=== PATIENT | female | born 1955 | race Caucasian/White ===

== ENCOUNTER 2021-10-14 08:57 | Day surgery (SDC) | payer OTHER ==
[~2021-10-14] VITALS: Ht 157.5 cm; Wt 56.9 kg
[2021-10-14] MEDS ORDERED: ZESTRIL40 M1 (09:35)
[2021-10-14] MEDS ORDERED: PRAV20 (09:36)
[2021-10-14] MEDS ORDERED: Toprol Xl25 MG (09:36)
[2021-10-14] MEDS ORDERED: ALEN70 (09:36)
== END 2021-10-14 12:19 | disposition home or self-care (01) ==
LOC: ORSCSDS 08:57
PROVIDERS: Internal Medicine Gastroenterology
PROC: 0DBH8ZX Excision of Cecum, Via Natural or Artificial Opening Endoscopic, Diagnostic (ICD-10-PCS; principal; 2021-10-14 10:15)
PROC: 0DBL8ZX Excision of Transverse Colon, Via Natural or Artificial Opening Endoscopic, Diagnostic (ICD-10-PCS; principal; 2021-10-14 10:15)
PROC: 0DBM8ZX Excision of Descending Colon, Via Natural or Artificial Opening Endoscopic, Diagnostic (ICD-10-PCS; principal; 2021-10-14 10:15)
PROC: 0DBK8ZX Excision of Ascending Colon, Via Natural or Artificial Opening Endoscopic, Diagnostic (ICD-10-PCS; principal; 2021-10-14 10:15)
PROC: 0DBN8ZX Excision of Sigmoid Colon, Via Natural or Artificial Opening Endoscopic, Diagnostic (ICD-10-PCS; principal; 2021-10-14 10:15)
DX: Z12.11 Encounter for screening for malignant neoplasm of colon (principal); Z86.010 Personal history of colon polyps; D12.0 Benign neoplasm of cecum; D12.2 Benign neoplasm of ascending colon; D12.3 Benign neoplasm of transverse colon; I10 Essential (primary) hypertension; F17.210 Nicotine dependence, cigarettes, uncomplicated
CPT/HCPCS: 88305; J2405; J2704; J7120

== ENCOUNTER 2023-07-16 08:16 | Day surgery (SDC) | payer OTHER ==
[~2023-07-16] VITALS: Ht 157.5 cm; Wt 54.5 kg
[~2023-07-16 08:16] MED LIST: ALEN70; PRAV20; Toprol Xl25 MG; ZESTRIL40 M1
[2023-07-16 10:14] VITALS: BP 97/77
--- NOTE | 2023-07-16 10:15 | NUR ---
07/16/23 1015 Zulay Brown IV DC'D, CATH INTACT. PT TOLERATED WELL. GAUZE/COBAN IN PLACE
== END 2023-07-16 10:18 | disposition home or self-care (01) ==
LOC: ORSCSDS 08:16
PROVIDERS: Internal Medicine Gastroenterology
PROC: 0DBM8ZX Excision of Descending Colon, Via Natural or Artificial Opening Endoscopic, Diagnostic (ICD-10-PCS; principal; 2023-07-16 09:30)
PROC: 0DBP8ZX Excision of Rectum, Via Natural or Artificial Opening Endoscopic, Diagnostic (ICD-10-PCS; principal; 2023-07-16 09:30)
PROC: 0DBN8ZX Excision of Sigmoid Colon, Via Natural or Artificial Opening Endoscopic, Diagnostic (ICD-10-PCS; principal; 2023-07-16 09:30)
PROC: 0DBL8ZX Excision of Transverse Colon, Via Natural or Artificial Opening Endoscopic, Diagnostic (ICD-10-PCS; principal; 2023-07-16 09:30)
PROC: 0DBK8ZX Excision of Ascending Colon, Via Natural or Artificial Opening Endoscopic, Diagnostic (ICD-10-PCS; principal; 2023-07-16 09:30)
DX: Z86.010 Personal history of colon polyps (principal); D12.2 Benign neoplasm of ascending colon; D12.3 Benign neoplasm of transverse colon; K63.5 Polyp of colon; K62.1 Rectal polyp; I10 Essential (primary) hypertension; E78.2 Mixed hyperlipidemia; Z79.899 Other long term (current) drug therapy; F17.210 Nicotine dependence, cigarettes, uncomplicated
CPT/HCPCS: 88305; J2704; J7120

== ENCOUNTER 2024-07-26 10:00 | Day surgery (SDC) | payer OTHER ==
[~2024-07-26] VITALS: Ht 157.5 cm; Wt 50.8 kg
[~2024-07-26 10:00] MED LIST changes: +Lactated Ringer's 1,000 ML IV ONE; +propofoL 50 ML IV ONE
[2024-07-26] MEDS ORDERED: AMLODIPINE BESY10 MG (11:23)
[2024-07-26] MEDS ORDERED: Lactated Ringer's 1,000 ML IV ONE (11:56)
[2024-07-26 13:02] VITALS: BP 118/981
== END 2024-07-26 13:12 | disposition home or self-care (01) ==
LOC: ORSCSDS 10:00
PROVIDERS: Specialist
PROC: 0DBP8ZX Excision of Rectum, Via Natural or Artificial Opening Endoscopic, Diagnostic (ICD-10-PCS; principal; 2024-07-26 12:15)
DX: K63.5 Polyp of colon (principal); K62.1 Rectal polyp; K64.8 Other hemorrhoids; I10 Essential (primary) hypertension; E78.5 Hyperlipidemia, unspecified; Z79.899 Other long term (current) drug therapy; F17.210 Nicotine dependence, cigarettes, uncomplicated
CPT/HCPCS: 88305; J2704; J7120

== ENCOUNTER 2025-02-18 21:09 | Inpatient (IN) | payer OTHER ==
[~2025-02-18] VITALS: Ht 160 cm; Wt 63.5 kg
[~2025-02-18 21:09] MED LIST changes: +AMLODIPINE BESY10 MG; -Lactated Ringer's 1,000 ML IV ONE; -propofoL 50 ML IV ONE
[2025-02-18] MEDS ORDERED: Folic Acid 1 MG TAB PO ONE (21:20)
[2025-02-18] MEDS ORDERED: NS 1,000 ML IV SCH (21:20)
[2025-02-18 21:23] LABS: BASOPHILS ABSOLUTE AUTO 0.00 K/mm3 (0.00-0.23); BASOPHILS PERCENT AUTO 0 % (0-2); EOSINOPHILS ABSOLUTE AUTO 0.02 K/mm3 (0.00-0.68); EOSINOPHILS PERCENT AUTO 1 % (0-6); IMMATURE GRAN ABSOLUTE AUTO 0.01 K/mm3 (0.00-0.10); IMMATURE GRAN PERCENT AUTO 0 % (0-1); LYMPHOCYTES ABSOLUTE AUTO 0.47 K/mm3 (0.84-5.20); LYMPHOCYTES PERCENT AUTO 16 % (21-46); MONOCYTES ABSOLUTE AUTO 0.11 K/mm3 (0.16-1.47); MONOCYTES PERCENT AUTO 4 % (4-13); Mean Corpuscular HGB Conc 37.3 g/dL (31.5-36.5); Mean Corpuscular Volume 95 fL (80-100); NEUTROPHILS ABSOLUTE AUTO 2.32 K/mm3 (1.96-9.15); NEUTROPHILS PERCENT AUTO 79 % (41-73); NRBC ABSOLUTE 0.00 K/mm3 (0.00-0.02); NRBC Auto 0.0 /100 WBC (0.0-0.2); Platelet Count 86 K/mm3 (150-400); RDW Coefficient Variation 17.1 % (11.7-14.2); RDW Standard Deviation 58.3 fL (35.1-46.3)
[2025-02-18 21:30] LABS: Hematocrit 14.2 % (33.0-51.0)
[2025-02-18 21:31] LABS: Hemoglobin 5.3 g/dL (11.5-16.0)
[2025-02-18] MEDS ORDERED: CefTRIAXone Sodium 1,000 MG in NS 100 ML IV ONE (21:35)
[2025-02-18] MEDS ORDERED: Pantoprazole Sodium 40 MG Injection IV ONE (21:35)
[2025-02-18 21:43] LABS: Ethanol (Alcohol), Blood, Med 262.0 mg/dL
[2025-02-18 21:46] LABS: Alanine Aminotransfer (ALT/SGP 29.0 U/L (12-78); Albumin, Blood 2.7 g/dL (3.4-5.0); Albumin/Globulin Ratio 0.8 (0.8-1.8); Anion Gap 18.0 mmol/L (3-11); Aspartate Aminotrans (AST/SGOT 52.0 U/L (12-37); Bilirubin, Total 0.9 mg/dL (0.1-1.0); Blood Urea Nitrogen 12.0 mg/dL (8-24); CO2, Blood 22.0 mmol/L (21-32); Calcium, Blood 5.9 mg/dL (8.5-10.1); Chloride, Blood 83.0 mmol/L (98-108); Creatinine, Blood 1.02 mg/dL (0.40-1.00); Globulin, Blood 3.2 g/dL (2.2-4.0); Glucose, Blood 97.0 mg/dL (70-99); Magnesium, Blood 0.9 mg/dL (1.6-2.4); Phosphorus, Blood 2.9 mg/dL (2.5-4.9); Potassium, Blood 2.2 mmol/L (3.5-5.5); Sodium, Blood 121.0 mmol/L (136-145); Total Protein, Blood 5.9 g/dL (6.4-8.2)
[2025-02-18] MEDS ORDERED: Magnesium Sulf 2 GM/Water 50ML 50 ML IV ONE (21:50)
[2025-02-18 22:34] LABS: Prothrombin Time Results 11.6 Sec (9.7-11.5)
[2025-02-19] VITALS (9 sets, daily range): BP systolic 111–144; BP diastolic 72–99
[2025-02-19] MEDS ORDERED: Ondansetron HCl 2 MG / ML 2ML Vial IV PRN (00:40)
[2025-02-19] MEDS ORDERED: NS 1,000 ML IV SCH (01:00)
[2025-02-19] MEDS ORDERED: NS 1,000 ML BAG IR ONE (05:15)
[2025-02-19] MEDS ORDERED: NS 500 ML IV ONE (05:30)
[2025-02-19] MEDS ORDERED: Pantoprazole Sodium 40 MG Injection IV SCH (06:00)
--- NOTE | 2025-02-19 07:38 | NUR ---
END OF SHIFT REPORT PT ADMITTED FROM ER AND PHOTOGRAPH OF REDDENED AREA OF BUTTOCKS TAKEN FOR BLANCHABLE REDNESS. PT ENDORESE DIARRHE AT HOME. STATES SHE HAS BEEN ON ORAL CHEMO FOR 3 WEEKS FOR STAGE FOUR LUNG CANCER. TRANSFUSIONS OF K AND FIRST BLAG OF BLOOD COMPLETED. THIAMINE AND FOLIC ACID COMPLETED AND SECOND BAG OF K TRANSFUSING. SECOND BAG OF PACKED RBC STARTED. PT TACHYCARDIC IN 120'S TO 130'S. PT CIWA SCORE 2. PER ER REPORT, PT VERY WEAK. BED ALARMS FOR SAFETY. FAMILY AT BEDSIDE AND TO DISCUSS W DAUGHTER LEN TO BRING ORAL CHEMOTHERAPY IN TO HOSPITAL AND TO NOT TAKE ANY MEDICATIOINS TILL MD AND PHARMACY APPROVE. PT DOES NOT KNOW NAME OR DOSE OF HER CHEMO.
[2025-02-19] MEDS ORDERED: GAVRETO100 MG PO (07:43)
[2025-02-19] MEDS ORDERED: PRAVASTATIN SOD20 MG PO (07:43)
[2025-02-19 10:42] LABS: Thyroid Stimulating Hormone 0.314 uIU/mL (0.360-4.800)
[2025-02-19 10:47] LABS: Alanine Aminotransfer (ALT/SGP 29.0 U/L (12-78); Albumin, Blood 2.9 g/dL (3.4-5.0); Albumin/Globulin Ratio 0.9 (0.8-1.8); Anion Gap 13.0 mmol/L (3-11); Aspartate Aminotrans (AST/SGOT 59.0 U/L (12-37); Bilirubin, Total 1.5 mg/dL (0.1-1.0); Blood Urea Nitrogen 7.0 mg/dL (8-24); CO2, Blood 28.0 mmol/L (21-32); Calcium, Blood 5.7 mg/dL (8.5-10.1); Chloride, Blood 86.0 mmol/L (98-108); Creatinine, Blood 0.8 mg/dL (0.40-1.00); Globulin, Blood 3.4 g/dL (2.2-4.0); Glucose, Blood 103.0 mg/dL (70-99); Potassium, Blood 3.7 mmol/L (3.5-5.5); Sodium, Blood 123.0 mmol/L (136-145); Total Protein, Blood 6.3 g/dL (6.4-8.2)
[2025-02-19 10:48] LABS: Magnesium, Blood 1.0 mg/dL (1.6-2.4)
[2025-02-19 11:07] LABS: BASOPHILS ABSOLUTE AUTO 0.01 K/mm3 (0.00-0.23); BASOPHILS PERCENT AUTO 0 % (0-2); EOSINOPHILS ABSOLUTE AUTO 0.02 K/mm3 (0.00-0.68); EOSINOPHILS PERCENT AUTO 1 % (0-6); Hematocrit 28.0 % (33.0-51.0); IMMATURE GRAN ABSOLUTE AUTO 0.02 K/mm3 (0.00-0.10); IMMATURE GRAN PERCENT AUTO 1 % (0-1); LYMPHOCYTES ABSOLUTE AUTO 0.21 K/mm3 (0.84-5.20); LYMPHOCYTES PERCENT AUTO 6 % (21-46); MONOCYTES ABSOLUTE AUTO 0.11 K/mm3 (0.16-1.47); MONOCYTES PERCENT AUTO 3 % (4-13); Mean Corpuscular HGB Conc 36.4 g/dL (31.5-36.5); Mean Corpuscular Volume 91 fL (80-100); NEUTROPHILS ABSOLUTE AUTO 3.21 K/mm3 (1.96-9.15); NEUTROPHILS PERCENT AUTO 90 % (41-73); NRBC ABSOLUTE 0.00 K/mm3 (0.00-0.02); NRBC Auto 0.0 /100 WBC (0.0-0.2); Platelet Count 73 K/mm3 (150-400); RDW Coefficient Variation 15.7 % (11.7-14.2); RDW Standard Deviation 50.3 fL (35.1-46.3)
[2025-02-19] MEDS ORDERED: Magnesium Sulf 2 GM/Water 50ML 50 ML IV ONE ×2 (11:30)
[2025-02-19] MEDS ORDERED: Calcium Chloride 10% 1,000 MG in NS 50 ML IV ONE (11:30)
[2025-02-19 11:48] LABS: Hemoglobin 10.2 g/dL (11.5-16.0)
--- NOTE | 2025-02-19 12:21 | NUR ---
CT NECK COMPLETE. DR JONES ORDERED ASPEN COLLAR FOR C-SPINE STABILIZATION. [facility] NOTIFIED BY WEIGHT CONTROL LECTURER AND DELIVERED TO ROOM. PATIENT PLACED IN ASPEN COLLAR. NALLELY WELL, ALTHOUGH SHE COMMENTED THAT IT WAS UNCOMFORTABLE. CMS INTACT. CIWA 4, PT HAVING INCREASED ANXIETY STATING THAT SHE HASN'T SLEPT SINCE YESTERDAY. PATIENT GIVEN LIBRIUM 25MG PO, EXPLAINED INDICATION AND MECHANISM OF MEDICATION R/T ALCOHOL WITHDRAWL. BOSSMAN RN SPOKE WITH FAMILY MEMBER EARLIER, STATING THAT SHE DRINKS SEVERAL BEERS DAILY STARTING AT 1200, THEN MOVES TO HARD ALCOHOL MIXED DRINKS THAT SHE "SIPS" THROUGHOUT THE REST OF THE DAY. PT HAS NO COMPLAINTS BESIDES WANTING TO GET SOME SLEEP. HR DECREASED TO 110'S ON MONITOR - SINUS TACH. MAGNESIUM SULFATE AND CALCIUM CHLORIDE STARTED PER EMAR.
--- NOTE | 2025-02-19 14:32 | NUR ---
TRANSFER TO MEDICAL FLOOR. REPORT TO ARNIE HANKINS ON MEDICAL FLOOR AT 1406. PATIENT TRANSFERRED TO FLOOR VIA W/C. NO COMPLAINTS. NALLELY ASPEN COLLAR WELL AT THIS TIME. CMS INTACT. CIWA 0. SINUS TACH ON MONITOR 110-120'S. A/OX4, NO RESP DISTRESS, DENIES ANY NEEDS PROIR TO TRANSFER. ACCOMPANIED BY DAUGHTER AND HUMAN RESOURCES ASSISTANT MANAGER TO FLOOR.
[2025-02-19] MEDS ORDERED: [UNRECOGNIZED DRUG - OTHER] PO SCH (17:36)
--- NOTE | 2025-02-19 18:32 | NUR ---
SHIFT SUMMARY PT TRANSFERED FROM PCU 12 TO ROOM 361. PT NOTED TO BE A&OX4 AND ASSIST X1. PT TOLERATING ASPEN COLLAR WELL AT THIS TIME. PT STARTED BACK ON HOME MEDICATION THIS SHIFT. DR TREJO WANTED PT IMAGES CLOUDED OVER TO [facility] CALLED AND STATED THEY WOULD COMPLETE. PT CIWA SCORE HAS BEEN A 1 AT THE HIGHEST.
[2025-02-19 21:55] LABS: BASOPHILS ABSOLUTE AUTO 0.02 K/mm3 (0.00-0.23); BASOPHILS PERCENT AUTO 1 % (0-2); EOSINOPHILS ABSOLUTE AUTO 0.02 K/mm3 (0.00-0.68); EOSINOPHILS PERCENT AUTO 1 % (0-6); Hematocrit 27.1 % (33.0-51.0); Hemoglobin 10.1 g/dL (11.5-16.0); IMMATURE GRAN ABSOLUTE AUTO 0.03 K/mm3 (0.00-0.10); IMMATURE GRAN PERCENT AUTO 1 % (0-1); LYMPHOCYTES ABSOLUTE AUTO 0.19 K/mm3 (0.84-5.20); LYMPHOCYTES PERCENT AUTO 6 % (21-46); MONOCYTES ABSOLUTE AUTO 0.10 K/mm3 (0.16-1.47); MONOCYTES PERCENT AUTO 3 % (4-13); Mean Corpuscular HGB Conc 37.3 g/dL (31.5-36.5); Mean Corpuscular Volume 89 fL (80-100); NEUTROPHILS ABSOLUTE AUTO 2.94 K/mm3 (1.96-9.15); NEUTROPHILS PERCENT AUTO 89 % (41-73); NRBC ABSOLUTE 0.02 K/mm3 (0.00-0.02); NRBC Auto 0.6 /100 WBC (0.0-0.2); Platelet Count 66 K/mm3 (150-400); RDW Coefficient Variation 16.6 % (11.7-14.2); RDW Standard Deviation 53.1 fL (35.1-46.3)
[2025-02-19 22:14] LABS: Anion Gap 10.0 mmol/L (3-11); Blood Urea Nitrogen 7.0 mg/dL (8-24); CO2, Blood 29.0 mmol/L (21-32); Calcium, Blood 6.2 mg/dL (8.5-10.1); Chloride, Blood 84.0 mmol/L (98-108); Creatinine, Blood 0.68 mg/dL (0.40-1.00); Glucose, Blood 104.0 mg/dL (70-99); Magnesium, Blood 1.4 mg/dL (1.6-2.4); Potassium, Blood 3.3 mmol/L (3.5-5.5); Sodium, Blood 120.0 mmol/L (136-145)
--- NOTE | 2025-02-20 03:07 | NUR ---
SHIFT SUMMARY NO ACUTE EVENTS DURING THIS SHIFT. PT DENIES PAIN AND DISCOMFORT. TOLERATING ASPEN COLLAR WELL, NO COMPLAINTS. TELE: SINUS TACH @102. PT DENIES CP/PRESSURE. PT ABLE TO TRANSFER WITH SBA TO THE BS. NO BM DURING THIS SHIFT. HELD HS COLACE D/T PT REPORT OF LOOSE STOOLS LATELY. CIWA SCORES OF 1 R/T ANXIETY AT HS, AND CIWA SCORE OF 0 @MIDNIGHT. BED AT THE LOWEST POSITION, CALL LIGHT W/I REACH. PT IS A/OX4, ABLE TO MAKE HER NEEDS KNOWN AND COOPERATIVE WITH CARE. GOOD APPETITE @DINNER TIME.
[2025-02-20 04:10] VITALS: BP 107/72
[2025-02-20 07:14] VITALS: BP 117/85
[2025-02-20] MEDS ORDERED: Folic Acid 1 MG TAB PO SCH (09:00)
[2025-02-20 09:43] LABS: BASOPHILS ABSOLUTE AUTO 0.01 K/mm3 (0.00-0.23); BASOPHILS PERCENT AUTO 0 % (0-2); EOSINOPHILS ABSOLUTE AUTO 0.02 K/mm3 (0.00-0.68); EOSINOPHILS PERCENT AUTO 1 % (0-6); Hematocrit 28.8 % (33.0-51.0); Hemoglobin 10.7 g/dL (11.5-16.0); IMMATURE GRAN ABSOLUTE AUTO 0.02 K/mm3 (0.00-0.10); IMMATURE GRAN PERCENT AUTO 1 % (0-1); LYMPHOCYTES ABSOLUTE AUTO 0.22 K/mm3 (0.84-5.20); LYMPHOCYTES PERCENT AUTO 7 % (21-46); MONOCYTES ABSOLUTE AUTO 0.06 K/mm3 (0.16-1.47); MONOCYTES PERCENT AUTO 2 % (4-13); Mean Corpuscular HGB Conc 37.2 g/dL (31.5-36.5); Mean Corpuscular Volume 91 fL (80-100); NEUTROPHILS ABSOLUTE AUTO 2.75 K/mm3 (1.96-9.15); NEUTROPHILS PERCENT AUTO 90 % (41-73); NRBC ABSOLUTE 0.00 K/mm3 (0.00-0.02); NRBC Auto 0.0 /100 WBC (0.0-0.2); Platelet Count 59 K/mm3 (150-400); RDW Coefficient Variation 17.1 % (11.7-14.2); RDW Standard Deviation 55.8 fL (35.1-46.3)
[2025-02-20 10:11] LABS: Alanine Aminotransfer (ALT/SGP 27.0 U/L (12-78); Albumin, Blood 2.8 g/dL (3.4-5.0); Albumin/Globulin Ratio 0.8 (0.8-1.8); Anion Gap 12.0 mmol/L (3-11); Aspartate Aminotrans (AST/SGOT 55.0 U/L (12-37); Bilirubin, Total 2.5 mg/dL (0.1-1.0); Blood Urea Nitrogen 7.0 mg/dL (8-24); CO2, Blood 27.0 mmol/L (21-32); Calcium, Blood 6.3 mg/dL (8.5-10.1); Chloride, Blood 87.0 mmol/L (98-108); Creatinine, Blood 0.81 mg/dL (0.40-1.00); Globulin, Blood 3.4 g/dL (2.2-4.0); Glucose, Blood 92.0 mg/dL (70-99); Magnesium, Blood 1.4 mg/dL (1.6-2.4); Potassium, Blood 3.1 mmol/L (3.5-5.5); Sodium, Blood 123.0 mmol/L (136-145); Total Protein, Blood 6.2 g/dL (6.4-8.2)
[2025-02-20 13:27] VITALS: BP 122/74
[2025-02-20] MEDS ORDERED: NS 1,000 ML IV SCH (15:50)
[2025-02-20] MEDS ORDERED: Magnesium Sulf 2 GM/Water 50ML 50 ML IV ONE (15:55)
[2025-02-20 16:41] VITALS: BP 153/109
--- NOTE | 2025-02-20 18:23 | NUR ---
NOTE PT TEARFUL AFTER A PHONE CALL FROM DR BUSH. SHE STATED THAT DR BUSH WANTS HER TO GO TO [facility] FOR SURGERY. FAXED A FACE SHEET TO [facility] TO THE TRANSFER CENTER. HAVE NOT HEARD BACK. VSS. NS AT 100ML/HR INFUSING. MAGNESIUM RIDER INFUSING. PT EXPRESSED NAUSEA. MEDCIATED WITH STARRY AND CRACKERS. SHE EXPRESSED IMPROVEMENT IN HER NAUSEA. SHE IS PICKING AT DINNER RIGHT NOW. UP TO BATHROOM WITH 1 ASSIST D/T IV POLE. GAIT STEADY. CARE ONGOING.
[2025-02-20 19:20] VITALS: BP 128/82
[2025-02-20 22:56] LABS: Anion Gap 10.0 mmol/L (3-11); Blood Urea Nitrogen 12.0 mg/dL (8-24); CO2, Blood 29.0 mmol/L (21-32); Calcium, Blood 7.1 mg/dL (8.5-10.1); Chloride, Blood 88.0 mmol/L (98-108); Creatinine, Blood 0.89 mg/dL (0.40-1.00); Glucose, Blood 106.0 mg/dL (70-99); Magnesium, Blood 2.0 mg/dL (1.6-2.4); Potassium, Blood 4.1 mmol/L (3.5-5.5); Sodium, Blood 123.0 mmol/L (136-145)
[2025-02-20 23:40] VITALS: BP 129/83
[2025-02-21] VITALS (7 sets, daily range): BP systolic 120–149; BP diastolic 85–106
--- NOTE | 2025-02-21 03:20 | NUR ---
SHIFT SUMMARY NO ACUTE EVENTS DURING THIS SHIFT. PT DENIES PAIN AND DISCOMFORT. ON PATSY, CONTINUOUS PULSE OX O2 SAT'S HIGH 90'S. NO COUGH NOTED. NS INFUSING ORDERED. ASSISTED WITH 1-PERSON SBA TO THE BSC. VOIDING WELL. NOTED IMPROVEMENT WHEN AMBULATING. BED AT THE LOWEST POSITION, CALL LIGHT W/I REACH. PT IS A/O X4, ABLE TO MAKE HER NEEDS KNOWN AND COOPERATIVE WITH CARE. CIWA SCORE OF 0. PT DENIES ANXIETY AT HS.
[2025-02-21 04:56] LABS: BASOPHILS ABSOLUTE AUTO 0.01 K/mm3 (0.00-0.23); BASOPHILS PERCENT AUTO 1 % (0-2); EOSINOPHILS ABSOLUTE AUTO 0.02 K/mm3 (0.00-0.68); EOSINOPHILS PERCENT AUTO 1 % (0-6); Hematocrit 29.4 % (33.0-51.0); Hemoglobin 10.5 g/dL (11.5-16.0); IMMATURE GRAN ABSOLUTE AUTO 0.02 K/mm3 (0.00-0.10); IMMATURE GRAN PERCENT AUTO 1 % (0-1); LYMPHOCYTES ABSOLUTE AUTO 0.35 K/mm3 (0.84-5.20); LYMPHOCYTES PERCENT AUTO 16 % (21-46); MONOCYTES ABSOLUTE AUTO 0.08 K/mm3 (0.16-1.47); MONOCYTES PERCENT AUTO 4 % (4-13); Mean Corpuscular HGB Conc 35.7 g/dL (31.5-36.5); Mean Corpuscular Volume 94 fL (80-100); NEUTROPHILS ABSOLUTE AUTO 1.71 K/mm3 (1.96-9.15); NEUTROPHILS PERCENT AUTO 78 % (41-73); NRBC ABSOLUTE 0.00 K/mm3 (0.00-0.02); NRBC Auto 0.0 /100 WBC (0.0-0.2); Platelet Count 53 K/mm3 (150-400); RDW Coefficient Variation 17.2 % (11.7-14.2); RDW Standard Deviation 57.2 fL (35.1-46.3)
[2025-02-21 05:35] LABS: Anion Gap 13.0 mmol/L (3-11); Blood Urea Nitrogen 10.0 mg/dL (8-24); CO2, Blood 23.0 mmol/L (21-32); Calcium, Blood 6.4 mg/dL (8.5-10.1); Chloride, Blood 95.0 mmol/L (98-108); Creatinine, Blood 0.75 mg/dL (0.40-1.00); Glucose, Blood 79.0 mg/dL (70-99); Magnesium, Blood 1.8 mg/dL (1.6-2.4); Phosphorus, Blood 3.6 mg/dL (2.5-4.9); Potassium, Blood 4.0 mmol/L (3.5-5.5); Sodium, Blood 127.0 mmol/L (136-145)
--- NOTE | 2025-02-21 18:13 | NUR ---
NOTE PT ALERT, ANXIOUS. ACCEPTING FACILITY [facility]. POSSIBLE TRANSPORT 2100. VSS. ASPEN COLLAR ON. NO SKIN ISSUESD UNDER THE COLLAR. NS AT 100 ML/HR INFUSING. REPORT CALLED TO JOCY HANKINS, [facility]. PT AMBULATED TO BATHROOM WITH FWW SBA. VOIDING CLEAR, YELLOW URINE. NO BM. BELONGINGS PACKED TO GO WITH HER. CARE ON GOING.
--- NOTE | 2025-02-21 21:49 | NUR ---
[facility] PICKED UP PT @ 2134 WITH ALL BELONINGS WELL HOME MEDICATIONS, INCLUDINGT CANCER MEDS. TRANSFER PACKET HANDED TO DAISY GARCIA.
== END 2025-02-21 21:40 | disposition short-term general hospital (02) | DRG 808 ==
LOC: ER 21:09 → PCU 02-19 00:45 → MEDS 02-19 14:35
PROVIDERS: Emergency Medicine; Internal Medicine; ADMIT Student in an Organized Health Care Education/Training Program
PROC: 3E03329 Introduction of Other Anti-infective into Peripheral Vein, Percutaneous Approach (ICD-10-PCS; 2025-02-18)
PROC: 30233N1 Transfusion of Nonautologous Red Blood Cells into Peripheral Vein, Percutaneous Approach (ICD-10-PCS; principal; 2025-02-19)
DX: D61.818 Other pancytopenia (principal); G93.41 Metabolic encephalopathy; M84.48XA Pathological fracture, other site, initial encounter for fracture; E87.1 Hypo-osmolality and hyponatremia; C34.02 Malignant neoplasm of left main bronchus; C77.9 Secondary and unspecified malignant neoplasm of lymph node, unspecified; C79.51 Secondary malignant neoplasm of bone; I10 Essential (primary) hypertension; E78.5 Hyperlipidemia, unspecified; F10.129 Alcohol abuse with intoxication, unspecified; D63.0 Anemia in neoplastic disease; E83.51 Hypocalcemia; E83.42 Hypomagnesemia; E87.6 Hypokalemia; Z98.890 Other specified postprocedural states; Z87.891 Personal history of nicotine dependence; Z79.899 Other long term (current) drug therapy
CPT/HCPCS: 36415; 36430; 70450; 72125; 74177; 80048; 80053; 80320; 82306; 82330; 83735; 83970; 84100; 84443; 85025; 85060; 85610; 86850; 86900; 86901; 86920; 93005; 93010; 94762; 96361; 96365-59; 96367; 96368; 96375; 99285-25; A9270; C1751; J0612; J0696; J2354; J2470; J3411; J3475; J3480; J7030; J7040; J7050; P9016; Q9967